=== PATIENT | female | born 1980 | race Caucasian/White ===

== ENCOUNTER 2019-02-12 11:38 | Emergency (ER) | payer OTHER, SELFPAY ==
[2019-02-12 11:40] VITALS: BP 130/85; PULSE 87; RESP 20; TEMP 36.4; O2SAT 93; BMI 31.3
--- NOTE | 2019-02-12 11:47 | ED_ITS ---
HPI - Back Pain/Injury <Alvina Redman PA-C - Last Filed: 02/12/19 13:31> General Chief Complaint: Back Pain/Injury Stated Complaint: back injury at work last night Time Seen by Provider: 02/12/19 11:39 Source: patient Mode of arrival: Ambulatory Limitations: no limitations History of Present Illness HPI Narrative: This 38-year-old female comes to ED secondary to low back pain and spasm, worse on the left. She states that this started while at work last night. 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 She states she has had back sprain and spasms in the past however it is been over years since she last had any symptoms. She took ibuprofen last night. States that pain was so bad then she was in tears. Spasms are slightly improved today. She states that it is painful bending, twisting, getting up from a chair or sitting. Once that she is able to walk. She denies any weakness or paresthesia in the extremities. Denies any bowel or bladder dysfunction. No other new symptoms, no other injury. She denies possibility of Related Data Previous Rx's Medication Instructions Recorded cyclobenzaprine 10 mg PO Q8H #15 tab 02/12/19 ibuprofen [IBU] 800 mg PO Q8H PRN #20 tab 02/12/19 lidocaine [Lidoderm] 3 patch TOP DAILY #30 each 02/12/19 Allergies Allergy/AdvReac Type Severity Reaction Status Date / Time Sulfa (Sulfonamide Allergy Verified 02/12/19 12:05 Antibiotics) Review of Systems <Alvina Redman PA-C - Last Filed: 02/12/19 13:31> Review of Systems ROS Unobtainable: All systems reviewed & are unremarkable except as noted in HPI and below Patient History <Alvina Redman PA-C - Last Filed: 02/12/19 13:31> Medical History (Updated 02/12/19 @ 12:25 by Alvina Redman PA-C) Chronic knee pain (Chronic) History of meniscal tear (Chronic) Social History Smoking Status: Never smoker Exam <SUZI Rinaldi Last Filed: 02/12/19 13:31> Initial Vital Signs Initial Vital Signs: Vital Signs Temperature 97.5 F L 02/12/19 11:40 Pulse Rate 87 02/12/19 11:40 Respiratory Rate 20 02/12/19 11:40 Blood Pressure 130/85 02/12/19 11:40 Pulse Oximetry 93 02/12/19 11:40 GENERAL APPEARANCE: Patient sitting comfortably, in no distress. PULMONARY: Lungs clear to auscultation bilaterally CV: Regular rhythm regular without murmur, normal S1 and S2, no S3 or S4 MUSCULOSKELETAL: No point tenderness over the lumbar spine. Tender over the left mid to inferior lumbar musculature most at the mid scapular line. Reduced trunk range of motion in all rossi secondary to tenderness, flexion to 45?. Stiff with sit to stand, normal gait. Lower extremity strength 5/5 bilateral hip flexors, knee extensors, foot plantar flexion. Negative modified straight leg raise <DO Zandra Genao Last Filed: 02/13/19 07:13> Initial Vital Signs Initial Vital Signs: Vital Signs Temperature 97.5 F L 02/12/19 11:40 Pulse Rate 87 02/12/19 11:40 Respiratory Rate 20 02/12/19 11:40 Blood Pressure 130/85 02/12/19 11:40 Pulse Oximetry 93 02/12/19 11:40 Course <Alvina Redman PA-C - Last Filed: 02/12/19 13:31> Vital Signs Vital signs: Vital Signs - 8 hr 02/12/19 11:40 Temperature 97.5 F L Pulse Rate 87 Respiratory Rate 20 Blood Pressure 130/85 Pulse Oximetry 93 <DO Zandra Genao Last Filed: 02/13/19 07:13> Vital Signs Vital signs: Vital Signs - 8 hr 02/12/19 11:40 Temperature 97.5 F L Pulse Rate 87 Respiratory Rate 20 Blood Pressure 130/85 Pulse Oximetry 93 Discharge Plan Departure Patient Disposition: Home Clinical Impression: Spasm of muscle of lower back Strain of lumbar region Qualifiers: Encounter type: initial encounter Qualified Code(s): S39.012A - Strain of muscle, fascia and tendon of lower back, initial encounter Discharge Date/Time: 02/12/19 12:36 Instructions: DI for Low Back Pain, DI for Back Spasm Activity Restrictions/Additional Instructions: I have sent prescriptions to [facility] for you to refill your ibuprofen, as well as for a muscle relaxant (remember this can make you sleepy and not to drive) and topical anesthetic patches to help with the pain. Gentle walking is okay, but please avoid prolonged sitting, bending, twisting, etc. Since you have tomorrow off, you can return to work after the weekend if you can do light duty, but continues to avoid exacerbating activities. As we talked about, please return to the ED if you have acutely worsening symptoms or new symptoms such as bowel or bladder difficulties or weakness in your extremities. Otherwise, please follow-up with your PCP next week to assess your progress and determine whether further treatment is needed. Prescriptions: New ibuprofen [IBU] 800 mg tablet 800 mg PO Q8H PRN (Reason: back pain) Qty: 20 RF: 0 cyclobenzaprine 10 mg tablet 10 mg PO Q8H Qty: 15 RF: 0 lidocaine [Lidoderm] 5 % adhesive patch,medicated 3 patch TOP DAILY Qty: 30 RF: 0 Referrals: Tony Cleveland [Non-Staff] -
== END 2019-02-12 12:36 | disposition home or self-care (01) ==
PROVIDERS: Emergency Provider Internal Medicine
DX: M62.830 Muscle spasm of back (principal); S39.012A Strain of muscle, fascia and tendon of lower back, initial encounter; X50.9XXA Other and unspecified overexertion or strenuous movements or postures, initial encounter; Y99.0 Civilian activity done for income or pay
CPT/HCPCS: 99282; 99283

== ENCOUNTER 2019-03-17 16:13 | Emergency (ER) | payer OTHER, MEDICAID, SELFPAY ==
[2019-03-17 16:18] VITALS: BP 153/99; PULSE 77; RESP 20; TEMP 36.6; O2SAT 100
--- NOTE | 2019-03-17 18:43 | ED_ITS ---
HPI - Dental/Oral <BHARATI Maurice - Last Filed: 03/17/19 18:46> General Chief complaint: Dental/Oral Stated complaint: ABSCESS LEFT SIDE OF FACE Time Seen by Provider: 03/17/19 18:05 Source: patient Mode of arrival: Ambulatory Limitations: no limitations History of Present Illness HPI Narrative: The patient is a 38-year-old female nonsmoker who presents with boyfriend for chief complaint of dental abscess. She states she has he dental abscess on 1 of her right upper molars. Started yesterday. History of dental abscesses. No IV drug use or diabetes. Denies any fevers nausea vomiting or diarrhea. Was not followed up with a dentist. Related Data Previous Rx's Medication Instructions Recorded cyclobenzaprine 10 mg PO Q8H #15 tab 02/12/19 ibuprofen [IBU] 800 mg PO Q8H PRN #20 tab 02/12/19 lidocaine [Lidoderm] 3 patch TOP DAILY #30 each 02/12/19 ketorolac 10 mg PO TID PRN #14 tab 03/17/19 penicillin V potassium 500 mg PO QID 10 Days #40 tab 03/17/19 Allergies Allergy/AdvReac Type Severity Reaction Status Date / Time Sulfa (Sulfonamide Allergy Verified 02/12/19 12:05 Antibiotics) Review of Systems <BHARATI Maurice - Last Filed: 03/17/19 18:46> Review of Systems Narrative: GENERAL: Denies chills, fatigue, malaise, fever, sweats. HEENT: See HPI RESPIRATORY: Denies dyspnea, cough, wheezing, hemoptysis, sputum. CARDIOVASCULAR: Denies chest pain, palpitations, orthopnea, edema, GASTROINTESTINAL: Denies nausea, vomiting, abdominal pain, diarrhea, constipation, melena. : Denies dysuria, frequency, incontinence, hematuria, urinary retention. MUSCULOSKELETAL: denies weakness, joint pain, or bony pain SKIN: Denies rash, skin lesions, or other NEUROLOGIC: Denies weakness, headache, numbness, change in speech, confusion, seizures, incoordination. PSYCHIATRIC: No concerning psychosocial issues. 12 point review of systems is negative except for those stated above Patient History <BHARATI Maurice - Last Filed: 03/17/19 18:46> Medical History Chronic knee pain (Chronic) History of meniscal tear (Chronic) Social History Smoking Status: Never smoker Smoking Status: Never smoker alcohol intake frequency: holidays/special occasions only Substance Use Type: does not use Exam <BHARATI Maurice - Last Filed: 03/17/19 18:46> Narrative Exam Narrative: GENERAL: This is a well-nourished, well-developed patient, no acute distress HEAD: Atraumatic. Normocephalic. No temporal or scalp tenderness. EYES: Pupils equal round and reactive. Extraocular motions intact. No scleral icterus. No injection or drainage. ENT: Nose without bleeding, purulent drainage or septal hematoma. Throat without erythema, tonsillar hypertrophy or exudate. Uvula midline. Airway patent. Poor dentition noted. Erythema noted from the right upper 1st molar, pain to palpation, no palpable abscess NECK: Trachea midline. No JVD or lymphadenopathy. Supple, nontender, no meningeal signs. CARDIOVASCULAR: Regular rate and rhythm RESPIRATORY: No cough. No increased respiratory effort. No accessory muscle use. EXTREMITIES: No clubbing, cyanosis, or edema. No joint tenderness, effusion, or edema noted. BACK: Nontender without deformity or crepitance. No flank tenderness. NEURO: AOx3. SKIN: No rash or erythema on visible skin Initial Vital Signs Initial Vital Signs: Vital Signs Temperature 97.9 F 03/17/19 16:18 Pulse Rate 77 03/17/19 16:18 Respiratory Rate 20 03/17/19 16:18 Blood Pressure 153/99 H 03/17/19 16:18 Pulse Oximetry 100 03/17/19 16:18 <Jah Gonzalez DO - Last Filed: 03/17/19 20:31> Initial Vital Signs Initial Vital Signs: Vital Signs Temperature 97.9 F 03/17/19 16:18 Pulse Rate 77 03/17/19 16:18 Respiratory Rate 20 03/17/19 16:18 Blood Pressure 153/99 H 03/17/19 16:18 Pulse Oximetry 100 03/17/19 16:18 Course <BHARATI Maurice - Last Filed: 03/17/19 18:46> Vital Signs Vital signs: Vital Signs - 8 hr 03/17/19 16:18 Temperature 97.9 F Pulse Rate 77 Respiratory Rate 20 Blood Pressure 153/99 H Pulse Oximetry 100 <Jah GonzalezDO - Last Filed: 03/17/19 20:31> Vital Signs Vital signs: Vital Signs - 8 hr 03/17/19 16:18 Temperature 97.9 F Pulse Rate 77 Respiratory Rate 20 Blood Pressure 153/99 H Pulse Oximetry 100 MDM - Dental/Oral <JE Maurice- - Last Filed: 03/17/19 18:46> MDM Narrative Medical decision making narrative: The patient is a 38-year-old female who presents with chief complaint of a dental infection. Her exam and symptoms correlate with a dental infection. She has no signs of systemic infection, is afebrile and denies fevers nausea vomiting or diarrhea. I did give her prescription of Toradol to not take it with any other NSAIDs. Discussed at length the importance of following up with her dentist. Discussed coming back to the ER for any acute concerns. Patient has no questions or concerns upon discharge and states understanding of return precautions as well as follow-up care. Discharge Plan Departure Patient Disposition: Home Clinical Impression: Dental infection Discharge Date/Time: 03/17/19 18:39 Instructions: Tooth Abscess, DI for Dental Pain Activity Restrictions/Additional Instructions: I sent in a prescription of antibiotics to [facility] in [facility] Please take the whole course and take it with probiotic or yogurt. Please follow-up with primary care provider and a dentist. I have given you a prescription of Toradol. This is an NSAID. Do not combine it with other NSAIDs such as Aleve or ibuprofen. I suggest taking it with some food, as it can irritate your stomach. Please use ice packs. Please come back to the emergency department for any acute concerns. Prescriptions: New penicillin V potassium 500 mg tablet 500 mg PO QID 10 Days Qty: 40 RF: 0 ketorolac 10 mg tablet 10 mg PO TID PRN (Reason: pain) Qty: 14 RF: 0 No Action ibuprofen [IBU] 800 mg tablet 800 mg PO Q8H PRN (Reason: back pain) Qty: 20 RF: 0 cyclobenzaprine 10 mg tablet 10 mg PO Q8H Qty: 15 RF: 0 lidocaine [Lidoderm] 5 % adhesive patch,medicated 3 patch TOP DAILY Qty: 30 RF: 0 Referrals: [facility] [Outside] <Jah Gonzalez, DO - Last Filed: 03/17/19 20:31> Sign Out Provider Sign Out Attestation: Dr Gonzalez Co-Sign Statement: I was available for consultation during this patient's emergency department visit. This chart is signed by myself for administrative purposes only. I did not have direct contact with this patient during this visit. They were seen independently by the APC.
== END 2019-03-17 18:39 | disposition home or self-care (01) ==
PROVIDERS: Emergency Provider Nurse Practitioner Family
DX: K04.7 Periapical abscess without sinus (principal)
CPT/HCPCS: 99283

== ENCOUNTER 2019-04-23 15:54 | Emergency (ER) | payer OTHER, MEDICAID, SELFPAY ==
[2019-04-23 16:02] VITALS: BP 144/94; PULSE 72; RESP 16; TEMP 36.5; O2SAT 98; BMI 31.3
--- NOTE | 2019-04-23 18:49 | PC.NURSE ---
pt with abscess to upper right gumline, recent visit to ER and round of antibx, doesn't seem better
--- NOTE | 2019-04-23 19:32 | ED_ITS ---
HPI - Dental/Oral General Chief complaint: Dental/Oral Stated complaint: states mouth infection Time Seen by Provider: 04/23/19 18:23 Source: patient Mode of arrival: Ambulatory Limitations: no limitations History of Present Illness HPI Narrative: 38-year-old female nonsmoker with extensive dental history of presents with a few days of pain and swelling above a ?problem tooth for a few days. No facial swelling or systemic findings such as fever, chills nor nausea or vomiting. No difficulty in swallowing. She does admit to some swelling of the gum line above tooth #6. No injury or trauma. MD Complaint: tooth pain Teeth map: 1. Onset (ago): day(s) Duration: constant Severity: mild Relieving factors: nothing Exacerbating factors: chewing Context: history of dental caries Associated symptoms: gum swelling Treatment prior to arrival: none Related Data Previous Rx's Medication Instructions Recorded cyclobenzaprine 10 mg PO Q8H #15 tab 02/12/19 ibuprofen [IBU] 800 mg PO Q8H PRN #20 tab 02/12/19 lidocaine [Lidoderm] 3 patch TOP DAILY #30 each 02/12/19 ketorolac 10 mg PO TID PRN #14 tab 03/17/19 penicillin V potassium 500 mg PO QID 10 Days #40 tab 03/17/19 amoxicillin-pot clavulanate 1 tab PO BID #20 tab 04/23/19 [Augmentin] Allergies Allergy/AdvReac Type Severity Reaction Status Date / Time Sulfa (Sulfonamide Allergy Verified 04/23/19 16:05 Antibiotics) Review of Systems Constitutional Constitutional: Denies chills, Denies fatigue, Denies fever(s), Denies frequent falls, Denies lethargy and Denies weakness Eyes Eyes: Denies change in vision, Denies eye discharge, Denies irritation and Denies loss of vision ENT Ears, Nose, Mouth, and Throat: Denies change in voice, Reports dental pain, Denies dizziness, Reports facial pain, Denies neck pain, Denies sore throat and Denies throat swelling Cardiovascular Cardiovascular: Denies chest pain, Denies irregular heart rhythm, Denies lightheadedness, Denies palpitations, Denies dyspnea, Denies dyspnea on exertion and Denies orthopnea Respiratory Respiratory: Denies cough, Denies dyspnea, Denies dyspnea on exertion and Denies wheezing Gastrointestinal Gastrointestinal: Denies abdominal pain, Denies change in bowel habits, Denies diarrhea, Denies nausea and Denies vomiting Genitourinary Genitourinary: Denies hematuria, Denies flank pain, Denies urinary incontinence and Denies urinary urgency Musculoskeletal Musculoskeletal: Denies back pain, Denies muscle weakness, Denies neck pain, Denies numbness and Denies tingling Integumentary/Breasts Skin/Breast: Denies pruritus, Denies erythema, Denies rash and Denies wounds Neurologic Neurologic: Denies behavioral changes, Denies confusion, Denies dizziness, Denies frequent falls, Denies loss of vision, Denies numbness, Denies tingling and Denies weakness Psychiatric Psychiatric: Denies anxiety, Denies behavioral changes, Denies confusion, Denies depression, Denies homicidal ideation and Denies suicidal ideation Endocrine Endocrine: Denies fatigue, Denies flushing and Denies palpitations Hematologic/Lymphatic Hematologic/Lymphatic: Denies easy bruising Allergic/Immunologic Allergic/Immunologic: Denies urticaria, Denies throat swelling and Denies wheezing Patient History Medical History Chronic knee pain (Chronic) History of meniscal tear (Chronic) Social History Smoking Status: Never smoker Smoking Status: Never smoker alcohol intake frequency: holidays/special occasions only Substance Use Type: does not use Exam Narrative Exam Narrative: GEN: AOx3 and in mild distress EYES: Pupils are equal, round, and reactive to light and accommodation. Extraoccular muscles are intact bilaterally. There is no subconjunctival hemorrhage or exudate. ORAL: no facial swelling, erythema or warmth. Mild swelling of gumline above tooth #6 which has been a chronic problem for her. No discharge, or fluctuance c/w abscess. CHEST: Lungs are clear to auscultation bilaterally and free of wheezes, rales, or rhonchi. Heart rate is regular rhythm, there are no murmurs, clicks, rubs, or gallops. There is no chest wall tenderness. ABD: Abdomen is soft and nontender. There is no guarding or rebound. Bowel sounds are normal in all 4 quadrants. There is no mass or organomegaly. EXT: Full painless ROM of all extremities with no loss of sensation or strength. SKIN: Warm, pink, and dry. No erythema or rash Initial Vital Signs Initial Vital Signs: Vital Signs Temperature 97.7 F 04/23/19 16:02 Pulse Rate 72 04/23/19 16:02 Respiratory Rate 16 04/23/19 16:02 Blood Pressure 144/94 H 04/23/19 16:02 Pulse Oximetry 98 04/23/19 16:02 Course Vital Signs Vital signs: Vital Signs - 8 hr 04/23/19 16:02 Temperature 97.7 F Pulse Rate 72 Respiratory Rate 16 Blood Pressure 144/94 H Pulse Oximetry 98 Discharge Plan Departure Patient Disposition: Home Clinical Impression: Dental caries, Dental abscess Discharge Date/Time: 04/23/19 19:43 Instructions: Tooth Decay, Tooth Abscess Activity Restrictions/Additional Instructions: *You have been diagnosed with [dental abscess] *What to do: *Take medications as directed: Your prescription was sent to [facility] in [place] at your request *Follow up with your primary care provider in 2-3 days, call for an appointment. Let them know you were seen in the Emergency Department and that we ask that you be seen in follow up *Return to ER if you should have any new, worsening or concerning symptoms Prescriptions: New amoxicillin-pot clavulanate [Augmentin] 875-125 mg tablet 1 tab PO BID Qty: 20 RF: 0 No Action penicillin V potassium 500 mg tablet 500 mg PO QID 10 Days Qty: 40 RF: 0 ketorolac 10 mg tablet 10 mg PO TID PRN (Reason: pain) Qty: 14 RF: 0 ibuprofen [IBU] 800 mg tablet 800 mg PO Q8H PRN (Reason: back pain) Qty: 20 RF: 0 cyclobenzaprine 10 mg tablet 10 mg PO Q8H Qty: 15 RF: 0 lidocaine [Lidoderm] 5 % adhesive patch,medicated 3 patch TOP DAILY Qty: 30 RF: 0
== END 2019-04-23 19:43 | disposition home or self-care (01) ==
PROVIDERS: Emergency Provider Emergency Medicine
DX: K02.9 Dental caries, unspecified (principal); K04.7 Periapical abscess without sinus
CPT/HCPCS: 99281; 99283

== ENCOUNTER 2019-08-07 12:43 | Emergency (ER) | payer OTHER, MEDICAID, SELFPAY ==
[2019-08-07 12:51] VITALS: BP 141/90; PULSE 89; RESP 18; TEMP 37.3; O2SAT 97; BMI 32.1
--- NOTE | 2019-08-07 13:17 | ED_ITS ---
HPI - Back Pain/Injury General Chief Complaint: Back Pain/Injury Stated Complaint: Pulled her back out Time Seen by Provider: 08/07/19 13:17 Source: patient Limitations: no limitations History of Present Illness HPI Narrative: This is a 39-year-old female who comes to the emergency department with complaint of back pain. Patient states her low back little bit more on the right than left although she has tightness down both legs she does not have pain radiating down her legs. She does not have any numbness or tingling. She does not have any bowel or bladder incontinence or saddle anesthesia. No fevers. No rash or skin changes to her back. She has had symptoms on and off for the past 11 years but typically they are related to work injuries. Yesterday she was putting on her clothes when she felt like she threw her back out and since then has not improved. She did take some ibuprofen this morning which was helpful but continues to have pain. She denies any other current symptoms. She has not had any other medications. She has had muscle relaxants lidocaine patches of the past with which have been helpful. She states she has never had any imaging of her back. She denies any prior back surgeries. Related Data Previous Rx's Medication Instructions Recorded cyclobenzaprine 10 mg PO Q8H #15 tab 02/12/19 ibuprofen [IBU] 800 mg PO Q8H PRN #20 tab 02/12/19 lidocaine [Lidoderm] 3 patch TOP DAILY #30 each 02/12/19 ketorolac 10 mg PO TID PRN #14 tab 03/17/19 amoxicillin-pot clavulanate 1 tab PO BID #20 tab 04/23/19 [Augmentin] cyclobenzaprine 10 mg PO TID PRN #15 tab 08/07/19 ibuprofen 800 mg PO TID PRN #30 tab 08/07/19 lidocaine [Lidoderm] 3 patch TOP DAILY PRN #1 each 08/07/19 Allergies Allergy/AdvReac Type Severity Reaction Status Date / Time Sulfa (Sulfonamide Allergy Verified 04/23/19 16:05 Antibiotics) Review of Systems Review of Systems ROS Unobtainable: All systems reviewed & are unremarkable except as noted in HPI and below Patient History Medical History Chronic knee pain (Chronic) History of meniscal tear (Chronic) Social History Smoking Status: Never smoker Smoking Status: Never smoker alcohol intake frequency: holidays/special occasions only Substance Use Type: does not use Exam Narrative Exam Narrative: GENERAL: Alert and oriented x three, obese, well-appearing female in moderate distress. HEENT: Head normocephalic, atraumatic, EOMI, pupils reactive, face symmetric, moist mucous membranes NECK: Supple, full range of motion CARDIOVASCULAR: Regular rate and rhythm without murmurs, rubs or gallops. RESPIRATORY: Breath sounds equal bilaterally, no wheezes rales or rhonchi. ABDOMEN: Soft, nontender. Normoactive bowel sounds all 4 quadrants. No guarding or rebound, rigidity, no mass : No CVA tenderness BACK: No cervical, thoracic or lumbar vertebral point tenderness. Patient has decreased range of motion, patient is able to roll over the bed with mild assistance. Patient's gait. Rectal exam is deferred. Muscle strength is 5/5 in lower extremities, DTRs are 2/4 and lower extremities. Dorsalis pedis and tibialis pulses are 2+ and lower extremities. Sensation is intact in the lower extremities. EXTREMITIES: Normal range of motion, no clubbing or edema. Neurovascularly intact NEUROLOGICAL: Cranial nerves II through XII grossly intact. Moving all extremities SKIN: Warm, dry, no petechiae, no rashes or lesions. Initial Vital Signs Initial Vital Signs: Vital Signs Temperature 99.1 F 08/07/19 12:51 Pulse Rate 89 08/07/19 12:51 Respiratory Rate 18 08/07/19 12:51 Blood Pressure 141/90 H 08/07/19 12:51 Pulse Oximetry 97 08/07/19 12:51 Course Orders Ordered: ED Orders 08/07/19 13:31 XR lumbar spine 2-3V Stat Discontinued Medications Cyclobenzaprine HCl (Flexeril) 10 mg PO NOW ONE Stop: 08/07/19 13:32 Last Admin: 08/07/19 14:22 Dose: 10 mg Documented by: [email or web address] Ketorolac Tromethamine (Toradol) 30 mg IM NOW ONE Stop: 08/07/19 13:32 Last Admin: 08/07/19 14:20 Dose: 30 mg Documented by: [email or web address] Vital Signs Vital signs: Vital Signs - 8 hr 08/07/19 12:51 08/07/19 14:07 08/07/19 14:56 Temperature 99.1 F Pulse Rate 89 68 60 Respiratory Rate 18 16 16 Blood Pressure 141/90 H Blood Pressure [Left Arm] 142/95 H 155/94 H Pulse Oximetry 97 99 99 MDM - Back Pain/Injury Lab Data Labs: Point of Care Testing Test Results Negative Imaging Data L-spine x-ray: Radiologist's Impression: Jayla Stiles 39 F 1980 [place] [address] XRay Report Signed Patient: Jayla Stiles#: [id number] : 1980Acct:[id number] Age/Sex: 39 / FDate of Service: 08/07/19 Loc: ED Accession Number: [id number] Procedure: XR lumbar spine 2-3V Ordering Provider: Brianna Stevenson D.O. PROCEDURE: XR LUMBAR SPINE 2-3V INDICATIONS: low back pain, intermittent, worse after changing clothes TECHNIQUE: 2 views of the lumbar spine were acquired. COMPARISON: None. FINDINGS: Bones: There are 5 lumbar-type vertebral bodies. The lowest intervertebral disk space is designated as L5-S1. The vertebral body heights are well-maintained without evidence to suggest an acute compression fracture. The bone mineralization is within normal limits. There may be early facet arthrosis within the lower lumbar region. The intervertebral disc heights appear to be relatively well-maintained. There may be mild degenerative changes of the sacroiliac joints. Soft tissues: The soft tissues of the imaged abdomen and pelvis are within normal limits. IMPRESSION: 1. No acute fractures of the lumbar spine. 2. Probable early facet degenerative changes of the lower lumbar spine. Dictated by: Bulmaro Ogden M.D. on 08/07/2019 at 13:10 Approved by: Bulmaro Ogden M.D. on 08/07/2019 at 13:12 [facility] Narrative Medical decision making narrative: Patient comes in with acute on chronic back pain. She has never had any imaging so we did discuss doing some is she did have any significant exacerbating factors other than changing clothes yesterday morning. She has had some improvement with ibuprofen. Given a dose of Toradol as well as cyclobenzaprine in the department. Imaging shows maybe early facet arthrosis within lower lumbar region. mild degenerative changes of the sacroiliac joints. Reviewed imaging with patient, she is feeling much better. Discussed return precautions. Discharge Plan Departure Patient Disposition: Home Clinical Impression: Acute exacerbation of chronic low back pain Discharge Date/Time: 08/07/19 14:59 Instructions: DI for Low Back Pain Activity Restrictions/Additional Instructions: Follow up with your primary care physician for recheck if no improvement of your symptoms. You can call, some providers are doing tele-visits at this time. Continue with ibuprofen 800mg every 8 hours as needed for pain an use Lidoderm patches topically as needed each day. Cyclobenzaprine every 8 hours as needed for muscle relaxation this medication can make you sleepy do not drive, perform hazardous activities or make any major decisions while taking it. Prescription was sent to [facility]. Return for fevers greater 100.4 F, new loss of bowel or bladder control, new weakness, numbness or inability to use your lower extremities or other new or concerning symptoms. Prescriptions: New cyclobenzaprine 10 mg tablet 10 mg PO TID PRN (Reason: muscle spasm) Qty: 15 RF: 0 ibuprofen 800 mg tablet 800 mg PO TID PRN (Reason: pain) Qty: 30 RF: 0 lidocaine [Lidoderm] 5 % adhesive patch,medicated 3 patch TOP DAILY PRN (Reason: pain) Qty: 1 RF: 0 No Action ketorolac 10 mg tablet 10 mg PO TID PRN (Reason: pain) Qty: 14 RF: 0 ibuprofen [IBU] 800 mg tablet 800 mg PO Q8H PRN (Reason: back pain) Qty: 20 RF: 0 cyclobenzaprine 10 mg tablet 10 mg PO Q8H Qty: 15 RF: 0 lidocaine [Lidoderm] 5 % adhesive patch,medicated 3 patch TOP DAILY Qty: 30 RF: 0 amoxicillin-pot clavulanate [Augmentin] 875-125 mg tablet 1 tab PO BID Qty: 20 RF: 0
--- NOTE | 2019-08-07 13:31 | DI.RAD.S_ITS ---
PROCEDURE: XR LUMBAR SPINE 2-3V INDICATIONS: low back pain, intermittent, worse after changing clothes TECHNIQUE: 2 views of the lumbar spine were acquired. COMPARISON: None. FINDINGS: Bones: There are 5 lumbar-type vertebral bodies. The lowest intervertebral disk space is designated as L5-S1. The vertebral body heights are well-maintained without evidence to suggest an acute compression fracture. The bone mineralization is within normal limits. There may be early facet arthrosis within the lower lumbar region. The intervertebral disc heights appear to be relatively well-maintained. There may be mild degenerative changes of the sacroiliac joints. Soft tissues: The soft tissues of the imaged abdomen and pelvis are within normal limits. IMPRESSION: 1. No acute fractures of the lumbar spine. 2. Probable early facet degenerative changes of the lower lumbar spine. Dictated by: Bulmaro Ogden M.D. on 08/07/2019 at 13:10 Approved by: Bulmaro Ogden M.D. on 08/07/2019 at 13:12
[2019-08-07 14:07] VITALS: BP 142/95; PULSE 68; RESP 16; O2SAT 99
[2019-08-07] MEDS: KETOROLAC 60 MG/2 ML VIAL 30 MG IM (14:20)
[2019-08-07] MEDS: CYCLOBENZAPRINE 10 MG TABLET PO (14:22)
[2019-08-07 14:56] VITALS: BP 155/94; PULSE 60; RESP 16; O2SAT 99
== END 2019-08-07 14:59 | disposition home or self-care (01) ==
PROVIDERS: Emergency Provider Emergency Medicine
DX: M54.5 Low back pain (principal)
CPT/HCPCS: 72100; 81025; 96372; 99283; J1885